=== PATIENT | female | born 1970 | race Caucasian/White ===

== ENCOUNTER 2020-05-03 17:27 | Emergency (ER) | payer SELFPAY ==
--- NOTE | 2020-05-03 17:55 | EDM.PDOC ---
ED HPI GENERAL MEDICAL PROBLEM - General Chief Complaint: Cardiovascular Problem Stated Complaint: palpatations Time Seen by Provider: 05/03/20 17:40 Source of Information: Reports: Patient History Limitations: Reports: No Limitations - History of Present Illness INITIAL COMMENTS - FREE TEXT/NARRATIVE: patient has been having episodes of palpitations increased over the past 2-3 days with left arm pain that is not reproducable. Was at work when the palpations started, nothing out of the normal. Denies CP, SOB, cough, fever, abdominal pain, back pain, or diarrhea. She has also been having left arm pain that shoots down her arm, nausea. She has neuropathy and chronic pain issues and is unsure if this is related. Denies any cardiac history or smoking. Location: Reports: Upper Extremity, Left Severity: Mild Improves with: Reports: None Worsens with: Reports: None Associated Symptoms: Reports: Nausea/Vomiting Left Arm Pain Score (Numeric/FACES): 8 - Related Data Allergies Allergy/AdvReac Type Severity Reaction Status Date / Time tetanus and diphtheria Allergy Anaphylactic Verified 05/03/20 18:12 toxoids Shock Home Meds: Home Meds Venlafaxine [Effexor] 150 mg PO BID 05/03/20 [History] ED ROS GENERAL - Review of Systems Review Of Systems: See Below Constitutional: Reports: No Symptoms HEENT: Reports: No Symptoms Respiratory: Denies: Shortness of Breath, Cough Cardiovascular: Reports: Palpitations Endocrine: Reports: No Symptoms GI/Abdominal: Reports: No Symptoms : Reports: No Symptoms Musculoskeletal: Reports: Arm Pain Skin: Reports: No Symptoms Neurological: Reports: No Symptoms Psychiatric: Reports: No Symptoms Hematologic/Lymphatic: Reports: No Symptoms Immunologic: Reports: No Symptoms ED EXAM, GENERAL - Physical Exam Exam: See Below Exam Limited By: No Limitations General Appearance: Alert, No Apparent Distress Eye Exam: Bilateral Eye: Normal Inspection Ears: Normal External Exam, Normal Canal, Normal TMs Ear Exam: Bilateral Ear: TM normal Nose: Normal Inspection, Normal Mucosa Throat/Mouth: Normal Inspection, Normal Lips, Normal Gums, Normal Oropharynx, Normal Voice Head: Atraumatic Neck: Normal Inspection, Non-Tender, Full Range of Motion Respiratory/Chest: No Respiratory Distress, Lungs Clear, Normal Breath Sounds, No Accessory Muscle Use Cardiovascular: Normal Peripheral Pulses, Regular Rate, Rhythm, No Edema, No JVD, No Murmur Peripheral Pulses: 3+: Carotid (L), Carotid (R), Radial (L), Radial (R), Posterior Tibial (L), Posterior Tibial (R), Dorsalis Pedis (L), Dorsalis Pedis (R) GI/Abdominal: Normal Bowel Sounds, Soft (Female) Exam: Normal External Exam Back Exam: Normal Inspection, Full Range of Motion Extremities: Normal Inspection, Normal Range of Motion, No Pedal Edema, Normal Capillary Refill Neurological: Alert, Oriented, Normal Cognition, No Motor/Sensory Deficits Psychiatric: Normal Affect, Normal Mood Skin Exam: Warm, Dry, Intact Lymphatic: No Adenopathy Course - Vital Signs Last Recorded V/S: Last Vital Signs Temp 97.8 F 05/03/20 18:17 Pulse 88 05/03/20 18:17 Resp 13 05/03/20 18:17 BP 138/84 05/03/20 18:17 Pulse Ox 98 05/03/20 18:17 - Orders/Labs/Meds Orders: Active Orders 24 hr Category Date Time Status EKG Documentation Completion [RC] ASDIRECTED Care 05/03/20 17:50 Active CXR [Chest 1V Frontal] [CR] Stat Exams 05/03/20 17:46 Taken Labs: Laboratory Tests 05/03/20 05/03/20 Range/Units 18:00 18:00 WBC 7.4 (4.0-11.0) K/uL RBC 3.97 (3.80-5.80) M/uL Hgb 11.5 (11.5-16.5) g/dL Hct 35.3 L (37.0-47.0) % MCV 89 (76-96) fL MCH 29.0 (27.0-32.0) pg MCHC 32.6 (31.0-35.0) g/dL RDW 14.0 (11.0-16.0) % Plt Count 414 (150-500) K/uL MPV 9.5 (6.0-10.0) fL Neut % (Auto) 66.5 (45.0-70.0) % Lymph % (Auto) 27.3 (20.0-40.0) % Schleicher % (Auto) 5.4 (3.0-10.0) % Eos % (Auto) 0.5 L (1.0-5.0) % Baso % (Auto) 0.3 (0.0-0.5) % Neut # (Auto) 4.93 (2.00-7.50) K/uL Lymph # (Auto) 2.02 (1.50-4.00) K/uL Schleicher # (Auto) 0.40 (0.20-0.80) K/uL Eos # (Auto) 0.04 (0.04-0.40) K/uL Baso # (Auto) 0.02 (0.02-0.10) K/uL Sodium 141 (136-145) mmol/L Potassium 3.4 L (3.5-5.1) mmol/L Chloride 106 (98-107) mmol/L Carbon Dioxide 21.3 (21.0-32.0) mmol/L Anion Gap 17.1 H (5.0-15.0) mmol/L BUN 10 (8-26) mg/dL Creatinine 0.99 (0.55-1.02) mg/dL Est Cr Clr Drug Dosing 64.35 mL/min Estimated GFR (MDRD) 60 (>60) MLS/MIN BUN/Creatinine Ratio 10.1 (6-25) Glucose 92 (74-100) mg/dL Calcium 8.5 (8.5-10.1) mg/dL Total Bilirubin 0.3 (0.0-1.0) mg/dL AST 11 L (15-37) U/L ALT 17 (12-78) U/L Alkaline Phosphatase 84 (46-116) U/L Troponin I < 0.017 (0.000-0.060) ng/mL Total Protein 7.4 (6.4-8.2) g/dL Albumin 3.7 (3.4-5.0) g/dL Globulin 3.7 (2.2-4.2) g/dL Albumin/Globulin Ratio 1.0 (0.8-2.0) Departure - Departure Time of Disposition: 18:30 Disposition: Home, Self-Care 01 Condition: Good Clinical Impression: Palpitations Instructions: Palpitations, [id number] Referrals: PCP,None [Primary Care Provider] - Forms: ED Department Discharge Additional Instructions: Return to ED for any increased or new concerning symptoms. They will call you to schedule a stress test. Avoid caffeine and alcohol. Follow up with Dr. Boston/Dr. Larose. Sepsis Event Note (ED) - Evaluation Sepsis Screening Result: No Definite Risk - Focused Exam Vital Signs: Vital Signs Temp Pulse Resp BP Pulse Ox 05/03/20 18:17 97.8 F 88 13 138/84 98 05/03/20 18:01 79 18 143/83 H 98 05/03/20 17:38 97 F 82 18 144/95 H 97 - My Orders Last 24 Hours: My Active Orders 05/03/20 17:46 CXR [Chest 1V Frontal] [CR] Stat 05/03/20 17:50 EKG Documentation Completion [RC] ASDIRECTED - Assessment/Plan Last 24 Hours: My Active Orders 05/03/20 17:46 CXR [Chest 1V Frontal] [CR] Stat 05/03/20 17:50 EKG Documentation Completion [RC] ASDIRECTED Assessment:: DDX: SC, pneumonia, PE. Patient denies any chest pain, SOB, long sendentary periods. Negative troponin and CXR. Plan: Have patient follow up with Dr. Boston in the clinic for outpatient stress test. She will return to ED for any increased or new concerning symptoms.
--- NOTE | 2020-05-04 09:17 | CR ---
DATE OF SERVICE: 05/03/20 CLINICAL DATA: palpitations,dyspnea AP CHEST: The heart size is normal. The lungs are clear. No pneumothorax. No pleural effusions. No evidence of acute intrathoracic disease. [id number] MTDD
== END 2020-05-03 18:38 | disposition home or self-care (01) ==
LOC: LB.ED 17:27
DX: R00.2 Palpitations (principal); Z88.7 Allergy status to serum and vaccine
CPT/HCPCS: 36415; 71045; 80053; 84484; 85025; 93005; 99285; 99285-25

== ENCOUNTER 2023-03-16 11:36 | Emergency (ER) | payer MEDICARE ==
[2023-03-16 11:44] VITALS: BP 140/70; PULSE 68
[2023-03-16] MEDS: Orphenadrine 60 MG/2 ML Inj IM ONE (12:15)
[2023-03-16] MEDS: Ketorolac 60 MG/2 ML SDV IM ONE (12:15)
[2023-03-16] MEDS: diazePAM 5 MG/ML MDV IM ONE (12:50)
[2023-03-16 13:04] LABS: APPEARANCE,URINE CLEAR (CLEAR); BILIRUBIN,URINE NEGATIVE (NEGATIVE); COLOR,URINE YELLOW; GLUCOSE,URINE NEGATIVE (NEGATIVE); KETONES,URINE NEGATIVE (NEGATIVE); LEUKOCYTE ESTERASE,URINE SMALL (NEGATIVE); NITRITE,URINE POSITIVE (NEGATIVE); OCCULT BLOOD,URINE TRACE-INTACT (NEGATIVE); PROTEIN,URINE NEGATIVE (NEGATIVE); UROBILINOGEN,URINE 0.2 E.U./dL (0.2-1.0)
[2023-03-16 13:11] LABS: BACTERIA,URINE MANY /HPF; RBC,URINE 0-5 /HPF; SQUAMOUS EPITHELIAL CELLS,UR MANY /HPF; WBC CLUMPS,URINE OCCASIONAL /HPF
[2023-03-16] MEDS ORDERED: traMADol 50 MG Tab ONE (15:00)
[2023-03-16] MEDS ORDERED: Cyclobenzaprine 10 MG Tab ONE (15:00)
[2023-03-16] MEDS ORDERED: Sulfamethoxazole/Trimethoprim 800-160 MG Tab ONE (15:00)
[2023-03-16] MEDS: Morphine 4 MG/ML VIAL IVPUSH ONE (15:52)
[2023-03-16] MEDS: Morphine 4 MG/ML VIAL ONE (15:53)
== END 2023-03-16 17:15 | disposition home or self-care (01) ==
LOC: LB.ED 11:36
DX: M54.50 Low back pain, unspecified (principal); N39.0 Urinary tract infection, site not specified; C85.93 Non-Hodgkin lymphoma, unspecified, intra-abdominal lymph nodes; Z79.899 Other long term (current) drug therapy; Z88.7 Allergy status to serum and vaccine
CPT/HCPCS: 74176; 81001; 87086; 96372; 99284; A9270-GY; J1885; J2270; J2360; J3360

== ENCOUNTER 2024-11-09 07:13 | Day surgery (SDC) | payer OTHER ==
[~2024-11-09 07:13] MED LIST: Metoclopramide 10 MG/2 ML SDV IV PRN
[2024-11-09] MEDS: Sodium Chloride 0.9% 1,000 ML IV SCH (07:46)
[2024-11-09] MEDS ORDERED: Propofol 500 MG/50 ML SDV ONE (09:30)
[2024-11-09] MEDS: Acetaminophen 325 MG Tab PO ONE (10:05)
== END 2024-11-09 10:43 | disposition home or self-care (01) ==
LOC: LB.SDS 07:13
PROVIDERS: ATTEND Surgery
DX: Z12.11 Encounter for screening for malignant neoplasm of colon (principal); D12.3 Benign neoplasm of transverse colon; F32.A Depression, unspecified; I10 Essential (primary) hypertension; Z79.899 Other long term (current) drug therapy; Z88.8 Allergy status to other drugs, medicaments and biological substances
CPT/HCPCS: 88305; A9270-GY; J2704; J7030